=== PATIENT | male | born 1970 | race Two or more races ===

== ENCOUNTER 2021-03-17 06:11 | Day surgery (SDC) | payer OTHER ==
[~2021-03-17 06:11] MED LIST: DIGOX125 MCG PO; JANTOVEN3 MG PO; KAPSPARGO SPRIN50 MG PO; METFORMIN HCL500 M2 PO; VASOTEC2.5 MG PO
== END 2021-03-17 17:20 | disposition home or self-care (01) ==
LOC: CIR.AMB 06:11 → EDBD 06:11 → CIR.AMB 08:00
PROVIDERS: ATTEND Urology
DX: N20.0 Calculus of kidney (principal); Z20.822 Contact with and (suspected) exposure to COVID-19

== ENCOUNTER 2021-03-30 08:01 | Outpatient (CLI) | payer OTHER | END 2021-03-30 08:12 | disposition home or self-care (01) | LOC: RAD 08:01 | PROVIDERS: ATTEND Urology | DX: N20.0 Calculus of kidney (principal) ==